=== PATIENT | male | born 1955 | race Caucasian/White ===

== ENCOUNTER 2023-11-04 05:31 | Observation (INO) ==
--- NOTE | 2023-11-02 12:21 | Anesthesiology Consultation ---
Date of Service November 02, 2023 Assessment & Plan (1) Encounter for pre-operative examination: Plan - awaiting surgeon ordered testing being completed at [facility] per PAT payroll secretary and will request most recent PCP office note-[facility] Dr. Oleksandr Chowdhury. - Case discussed with Dr. Brian who advised if testing is unremarkable patient can proceed with surgery without further evaluation from his standpoint. - Per biofuels production technician on 11/01/2023: No known infectious disease contacts, current infectious disease symptoms in past 10 days or COVID positive test result in the past 30 days. Chart Review Chart Review: Pending: Refer to Additional Notes / Consult section and Patient NOT seen in Pre Admission Testing History Surgery Operation Date: 11/04/23 09:20 Proposed Procedures p C4 Corpectomy - Scooby Silveira DO Height/Weight Height: 6 ft 1.5 in Weight: 74.843 kg Allergies Allergy/AdvReac Type Severity Reaction Status Date / Time No Known Allergies Allergy Verified 11/01/23 11:59 Medications Home Medications Medication Instructions Recorded Confirmed Last Taken multivitamin 1 tab PO QAM 11/01/23 11/01/23 Unknown naproxen sodium 220 mg tablet 220 mg PO Q12H PRN Pain 11/01/23 11/01/23 Unknown (Aleve) Past Medical History Medical History (Updated 11/02/23 @ 13:00 by Maci Cosby PA-C) Nausea and vomiting after administration of anesthetic agent "back in the day when they used ether" Osteoarthritis L4-L5 w/"narrowing" in my lower back, having pain currently, will be seeing pain specialist in the near future Hx of Lyme disease 05/2005,hospitalized for 11 days, initial bite was misdiagnosed as a spider bite until pt would go to bed he "felt like someone was putting a pillow over his face," and he would wake up and feel like he was drowning. taken to the ER at [facility] and found to have lyme's disease that affecting his heart History of temporary cardiac pacemaker treatment 05/2005, hospitalized for 11 days in the ICU at [facility] following misdiagnosed tick bite/lyme disease that was affecting his heart; f/u w/cardiology for 1 year at [facility]>no current issues. Past Family History Family History Father Diabetes Past Surgical History Surgical History History of colonoscopy Hx of appendectomy Hx of tonsillectomy Hx of detached retina repair partial tear rt eye repaired and a "hole" in the lt eye>unsuccessful repair done in [place]; ended up with a total of 5 surgeries in lt eye and 2 surgeries in the rt. eye when back in the [facility]. Social History Smoking Status: Never smoker Do You Dip or Chew Tobacco: No Hx Alcohol Use: No Hx Substance Use: No substance use type: does not use Testing Other Testing Brain MRI 09/09/23 No acute intracranial process Mild cerebral atrophy and periventricular white matter changes
[2023-11-04] MEDS ORDERED: ACETAMINOPHEN 500 MG TAB PO SCH (06:00)
[2023-11-04] MEDS ORDERED: LR 60ML/HR IV SCH (06:00)
[2023-11-04] MEDS ORDERED: ceFAZolin 2000MG 2,000 MG/15 ML SYR IV SCH (06:00)
[2023-11-04] MEDS ORDERED: CeleBREX 200 MG CAP PO SCH (06:00)
[2023-11-04] MEDS ORDERED: GABAPENTIN 300 MG CAP PO SCH (06:00)
[2023-11-04] MEDS ORDERED: LR 15ML/HR IV SCH (06:00)
[2023-11-04] MEDS ORDERED: MIDAZOLAM HCL 1 MG/ML 2ML VIAL ONE (07:15)
[2023-11-04] MEDS ORDERED: fentaNYL citrate PF 100 MCG/2 ML VIAL ONE ×2 (07:16→08:47)
[2023-11-04] MEDS ORDERED: PROPOFOL IV EMULSION 10 MG/ML 20 ML VIAL IV ONE (07:31)
[2023-11-04] MEDS ORDERED: LIDOCAINE 2% 2 ML VIAL/AMP(20MG/ML) INFIL ONE (07:31)
[2023-11-04] MEDS ORDERED: DEXAMETHASONE SOD INJ 4 MG/ML VIAL ONE (07:31)
[2023-11-04] MEDS ORDERED: ONDANSETRON INJ 2 MG/ML 2 ML VIAL ONE (07:31)
[2023-11-04] MEDS ORDERED: ROCURONIUM BROMIDE 10 MG/ML 5 ML VIAL IV ONE ×2 (07:31→08:29)
[2023-11-04] MEDS ORDERED: ePHEDrine sulfate 50 MG/ML AMP IV PRN (07:45)
[2023-11-04] MEDS ORDERED: FLUMAZENIL 0.1 MG/1 ML 10 ML VIAL IV PRN (07:45)
[2023-11-04] MEDS ORDERED: ATROPINE SULFATE 0.1 MG/ML 10ML SYR IV PRN (07:45)
[2023-11-04] MEDS ORDERED: LABETALOL HCL IV 5 MG/ML 20ML IV PRN (07:45)
[2023-11-04] MEDS ORDERED: HYDROmorphone INJ 1 MG/ML SYRINGE IV PRN ×2 (07:45→12:59)
[2023-11-04] MEDS ORDERED: ONDANSETRON INJ 2 MG/ML 2 ML VIAL IV PRN ×2 (07:45→12:59)
[2023-11-04] MEDS ORDERED: PROMETHAZINE HCL 12.5 MG in SODIUM CHLORIDE 0.9% 50 ML IV PRN ×2 (07:45→12:59)
[2023-11-04] MEDS ORDERED: NALOXONE HCL 0.4 MG/1 ML VIAL/CARP IV PRN ×2 (07:45→12:59)
--- NOTE | 2023-11-04 07:45 | History & Physical Bridge Note ---
Date of Service November 04, 2023 History & Physical Bridge Note I have examined the patient, reviewed the History & Physical and in the interval since the performance of the History & Physical I have noted the following changes of clinical significance: no changes noted
--- NOTE | 2023-11-04 07:46 | History & Physical Report ---
Date of Service November 04, 2023 Assessment & Plan (1) Myelopathy concurrent with and due to spinal stenosis of cervical region: Plan: C4 corpectomy History of Present Illness Chief Complaint: Neck and arm pain Primary Care Provider: Oleksandr Chowdhury This is a 68-year-old male presents with marked decline in status and evidence of cervical myelopathy. He is here for surgical intervention. Allergies Allergy/AdvReac Type Severity Reaction Status Date / Time No Known Allergies Allergy Verified 11/04/23 05:53 Home Medications Medication Instructions Recorded Confirmed Type multivitamin 1 tab PO QAM 11/01/23 11/04/23 History naproxen sodium 220 mg tablet 220 mg PO Q12H PRN Pain 11/01/23 11/04/23 History (Aleve) Past Med/Surg History Medical History (Updated 11/04/23 @ 07:46 by Scooby Silveira DO) Nausea and vomiting after administration of anesthetic agent "back in the day when they used ether" Osteoarthritis L4-L5 w/"narrowing" in my lower back, having pain currently, will be seeing pain specialist in the near future Hx of Lyme disease 05/2005,hospitalized for 11 days, initial bite was misdiagnosed as a spider bite until pt would go to bed he "felt like someone was putting a pillow over his face," and he would wake up and feel like he was drowning. taken to the ER at [facility] and found to have lyme's disease that affecting his heart History of temporary cardiac pacemaker treatment 05/2005, hospitalized for 11 days in the ICU at [facility] following misdiagnosed tick bite/lyme disease that was affecting his heart; f/u w/cardiology for 1 year at [facility]>no current issues. Surgical History History of colonoscopy Hx of appendectomy Hx of tonsillectomy Hx of detached retina repair partial tear rt eye repaired and a "hole" in the lt eye>unsuccessful repair done in [place]; ended up with a total of 5 surgeries in lt eye and 2 surgeries in the rt. eye when back in the [facility]. Family History Father Diabetes Social History Smoking Status: Never smoker Second Hand Exposure: Yes (as kid); Do You Dip or Chew Tobacco: No; Tobacco Cessation Education Requested by Patient: No Hx Alcohol Use: No Hx Substance Use: No Preferred Language: Irish Communication Ability: Effective Trucking Supervisor Required: No Beliefs That Will Affect Care: None Current Living Situation: Spouse Other Information That Helps Us Care for You: No Feels Safe at Home: Yes Safety Concerns: Feels Safe At This Time Assistive Devices: Glasses Assistive Devices Comment: perm bridge top front Physical Exam Physical Exam: Patient is alert normal Heart regular rhythm Lungs clear Results & Data Results & Data Vital Signs (Past 12 Hours) Vital Signs Temp Pulse Resp BP Pulse Ox O2 Del Method 11/04/23 05:54 36.8 C 65 20 134/74 99 Room Air
[2023-11-04] MEDS ORDERED: ceFAZolin 330 MG/ML 1 GM VIAL ONE (07:51)
[2023-11-04] MEDS ORDERED: ePHEDrine sulfate 50 MG/5 ML SYR ONE (08:35)
[2023-11-04] MEDS ORDERED: PHENYLEPHRINE HCL 10 MG/ML VIAL ONE (08:35)
[2023-11-04] MEDS ORDERED: diphenhydrAMINE 50 MG/ML VIAL ONE (08:37)
[2023-11-04] MEDS ORDERED: SUGAMMADEX SODIUM 200 MG/2 ML VIAL IV ONE ×2 (09:14→09:53)
[2023-11-04] MEDS ORDERED: PHENYLEPHRINE 100MCG/ML 10ML SYR IV ONE (09:36)
--- NOTE | 2023-11-04 09:47 | Operative Report ---
Post Operative Report Pre & Post Diagnosis Operation Date: 11/04/23 07:45 Pre-Op Diagnosis: Cervical spinal stenosis with myelopathy Post-Op Diagnosis: Same I identified the patient and participated in the time-out.: Yes Procedure Operation Date: 11/04/23 07:45 Actual Procedures #1 anterior cervical corpectomy with bilateral foraminotomies C4. #2 anterior cervical arthrodesis C3-C5. #3 placement of peek 25 mm cage between C4 and C5. #3 placement of locally harvested morselized autograft combined with I factor and interbody cage. #5 application of K2 M plate and screws from C3-C5. Surgeon Scooby Silveira, DO Production Gear Cutter Jyothi Mendez Estimated Blood Loss 10 Findings Consistent with Post-Op Diagnosis Specimens None Indications This is a 68-year-old male who presents above-mentioned diagnosis is here for surgical invention. Description of Procedure Patient was met with identified informed consent obtained. Patient was then taken to the operative suite underwent patient placed in supine position objectionable head Garay aquatics assistant department head. All bony promises well-padded eyes inspected to ensure no external pressure placed upon the. This point the anterior cervical spine was prepped and draped in a sterile fashion. The assistance of fluoroscopy identified the C4 vertebral body and a transverse incision was placed along the right aspect of the cervical spine overlying this region. Blunt dissection with assistance of bipolar electrocautery to form down to and exposing the anterior cervical spine from C3 3 to C5. Self-retaining retractors placed. Then performed complete discectomy of C3-4 out to the uncovertebral joints bilaterally followed by C4-C5. [place] distracting pins were placed in C3 and C5 distract across the C4 vertebral body. Complete corpectomy was then performed including removal of all posterior annular fibers longitudinal ligament bilateral foraminotomies were performed addressing severe stenosis. The endplates were then burred to subcortical bleeding bone and 25 mm peek cage filled with locally harvested morselized autograft and I factor tapped in position. Distracting apparatus was removed and a K2 M plate and screws applied with the assistance of fluoroscopy. The incision was then copiously irrigated explored to ensure no damage to surrounding structures or remaining bleeding. 10 round PABLO drain inserted. The incision was then closed with 2 Vicryl in a fashion of 4 Monocryl for fascial closure. Steri-Strip sterile dr essings placed. Patient awakened taken to PACU in stable condition. Please note spinal cord monitoring visualized at the procedure no changes noted. Lastly Jyothi Mendez was present at the entire surgeon while the patient positioning complex portions of the surgery and final skin closure. I attest to the content of the Intraoperative Record and any orders documented therein. Any exceptions are noted below.
--- NOTE | 2023-11-04 10:06 | Fluoroscopy Report ---
FL cervical 2-3V CLINICAL HISTORY: C4 CORPECTOMY COMPARISON STUDY: None FLUOROSCOPY TIME: 12 seconds FLUOROSCOPY IMAGES: 2 EXPOSURE DOSE: 1.05 mGy FINDINGS: Anterior plate and screw fusion hardware is noted at what appears to be the C3-C5 levels, e xact numbering is not definite based on positioning. Additionally, there is reported C4 corpectomy. T here are 2 surgical sponges in the anterior operative bed. Endotracheal tube is present. Note that th e images were submitted following completion of the surgery. A surgical drainage catheter is also pre sent. IMPRESSION: Fluoroscopic assistance as above. ACT 112: Negative or not required by law. Electronically signed by: Jakub Delacruz M.D. 11/04/2023 10:05 AM
[2023-11-04] MEDS ORDERED: FLOSEAL HEMOSTATIC MATRIX 10ML TOP ONE (10:29)
[2023-11-04] MEDS: fentaNYL citrate PF 100 MCG/2 ML VIAL IV PRN ×4 (10:42→10:57)
--- NOTE | 2023-11-04 11:27 | Anesthesiology Progress Note ---
Date of Service November 04, 2023 Anesthesia Post Procedure Vital Signs Vital Signs: Temp Pulse Resp BP Pulse Ox O2 Del Method O2 Flow Rate 11/04/23 11:15 36.8 C 72 16 135/71 98 Nasal Cannula 2 11/04/23 11:05 70 16 125/71 98 Nasal Cannula 2 11/04/23 10:55 61 12 119/64 100 Oxymask 4 11/04/23 10:45 62 12 126/68 100 Oxymask 4 11/04/23 10:35 71 18 136/73 100 Oxymask 4 11/04/23 10:25 70 16 132/72 100 Oxymask 4 11/04/23 10:15 76 18 124/69 100 Oxymask 6 11/04/23 10:07 36.0 C L 78 16 135/63 99 Oxymask 6 11/04/23 05:54 36.8 C 65 20 134/74 99 Room Air Pain Intensity Lower Back: Pain Intensity: 2 Neck: Pain Intensity: 2 Transfer of Care Handoff Completed per policy Notes Mental Status: alert / awake / arousable Patient Amnestic to Procedure: Yes Nausea / Vomiting: adequately controlled Pain: adequately controlled Airway Patency, RR, SpO2: stable & adequate BP & HR: stable & adequate Hydration State: stable & adequate Anesthetic Complications: no major complications apparent
[2023-11-04] MEDS ORDERED: dexAMETHasone 8 MG in SYRINGE 0 ML IV PRN (12:59)
[2023-11-04] MEDS ORDERED: RACEPINEPHRINE 2.25% NEBU SOLN 0.5 ML VIAL INH PRN (12:59)
[2023-11-04] MEDS ORDERED: hydrOXYzine HCl 25 MG TAB PO PRN (12:59)
[2023-11-04] MEDS ORDERED: MAGNESIUM HYDROXIDE SUSP 30 ML UDC PO PRN (12:59)
[2023-11-04] MEDS ORDERED: METOCLOPRAMIDE HCL INJ 5 MG/ML 2 ML VIAL IV PRN (12:59)
[2023-11-04] MEDS ORDERED: ALUMINUM/MAGNESIUM SUSP 30 ML UDC PO PRN (12:59)
[2023-11-04] MEDS ORDERED: ONDANSETRON 4 MG OD TAB PO PRN (12:59)
[2023-11-04] MEDS ORDERED: FAMOTIDINE 20 MG TAB PO PRN (12:59)
[2023-11-04] MEDS ORDERED: diphenhydrAMINE Capsule 25 MG CAP PO PRN (12:59)
[2023-11-04] MEDS ORDERED: LORazepam 0.5 MG in SYRINGE 0.25 ML IV PRN (12:59)
[2023-11-04] MEDS ORDERED: ACETAMINOPHEN 500 MG TAB PO PRN (12:59)
[2023-11-04] MEDS ORDERED: DO NOT ADMINISTER PNEUMOCOCCAL VACCINE PRN (12:59)
[2023-11-04] MEDS ORDERED: oxyCODONE HCL IR 5 MG TAB (IMMEDIATE RELEASE) PO PRN (12:59)
[2023-11-04] MEDS ORDERED: ACETAMINOPHEN 1,000 MG/100 ML VIAL IV PRN (12:59)
[2023-11-04] MEDS ORDERED: LORazepam 0.5 MG TAB PO PRN (12:59)
[2023-11-04] MEDS ORDERED: bisacodyL 10 MG SUPP PR PRN (12:59)
[2023-11-04] MEDS ORDERED: SOD PHOSPHATE/SOD BIPHOSPHATE ENEMA 132 ML BTL PR PRN (12:59)
[2023-11-04] MEDS ORDERED: traMADol HCL 50 MG TABLET PO PRN (12:59)
[2023-11-04] MEDS ORDERED: DO NOT ADMINISTER FLU VACCINE PRN (12:59)
[2023-11-04] MEDS ORDERED: HYDROmorphone INJ 0.5 MG/0.5 ML SYR IV PRN (12:59)
[2023-11-04] MEDS: LACTATED RINGER'S 1,000 ML IV SCH ×2 (14:48→21:35)
[2023-11-04] MEDS: dexAMETHasone 6 MG in SYRINGE 0 ML IV SCH ×2 (14:54→21:35)
[2023-11-04] MEDS: ceFAZolin 2000MG 2,000 MG/15 ML SYR IV SCH (17:52)
[2023-11-04] MEDS ORDERED: DOCUSATE SODIUM/SENNA 50/8.6MG TAB PO SCH (21:00)
[2023-11-04] MEDS ORDERED: COUGH DROP (SUGAR FREE) LOZ 24 LOZ/1 BOX BUCCAL PRN (22:48)
[2023-11-05] MEDS: ceFAZolin 2000MG 2,000 MG/15 ML SYR IV SCH (01:48)
[2023-11-05] MEDS: LACTATED RINGER'S 1,000 ML IV SCH (04:26)
[2023-11-05] MEDS: dexAMETHasone 6 MG in SYRINGE 0 ML IV SCH (06:04)
[2023-11-05] MEDS: POLYETHYLENE (MIRALAX) 17 GM PACK PO SCH ×2 (06:04→13:01)
--- NOTE | 2023-11-05 10:36 | Discharge Summary ---
Date of Service November 05, 2023 Admission HPI Per Admitting Provider This is a 68-year-old male presents with marked decline in status and evidence of cervical myelopathy. He is here for surgical intervention. Principal Diagnosis Cervical spinal stenosis with myelopathy Discharge Data Allergies Allergy/AdvReac Type Severity Reaction Status Date / Time No Known Allergies Allergy Verified 11/04/23 05:53 Procedures Performed Operation Date: 11/04/23 07:45 Actual Procedures p C4 Corpectomy - Scooby Silveira DO Ordered Studies 11/04/23 07:45 [place] cervical 2-3V Routine Hospital Course (1) Myelopathy concurrent with and due to spinal stenosis of cervical region: Patient underwent anterior cervical corpectomy and fusion tolerated this well was taken to orthopedic for postoperative. Postop day #1 he is open ambulating swallowing well. No hoarseness. Good strength testing. PABLO drain decreasing probably. Subsidy discharged home. Discharge orders instructions found in chart for further view. Total Time Total Time Spent Total Time Spent (In Minutes): 20 minutes Discharge Plan Discharge Items Patient Disposition: Home - Home Health Services Reason For Visit: Neck Pain, Cervical Spondylosis with Myelopathy Discharge Diagnosis: Cervical spinal stenosis with myelopathy Activity: As commented below Non-emergency contact: Primary Care Provider Call non-emergency contact if: you have any medication questions Follow-up/Referrals: Oleksandr Chowdhury MD [Primary Care Provider] - Diet: Regular Addtl Attending Provider Instructions: ACTIVITY RECOMMENDATIONS: SELF CARE INSTRUCTIONS AFTER CERVICAL FUSIONS 1. No smoking. Smoking drastically decreases the chance of a solid fusion. 2. No bending, lifting more than 5 pounds, or twisting (roll like a log when turning in bed). 3. You may shower 3 days after surgery. Thoroughly dry wound. Do not soak in the tub. 4. Cervical collar: Must be worn at all times including sleeping. You may remove the brace only to bath, eat and if you are sitting in a recliner. 5. Please walk as much as you can for exercise. Gradually increase the distance that you walk as your endurance increases. SPECIAL CARE INSTRUCTIONS: VERY IMPORTANT TO READ AND REVIEW A. Do not take any anti-inflammatory medications (i.e. Indocin, Advil, Aspirin, Naprosyn, Aleve, Motrin, etc.) as these may inhibit the chance of a solid fusion. Tylenol is okay to take. B. Your surgical incision has been closed with a cosmetic suture under the skin that will dissolve in about 6 weeks. In 14 days, you can use a pair of clean scissors and cut the suture that is left outside of the skin at the ends of your incision. C. Complications are uncommon, but please contact us if you have any signs or symptoms of: 1. wound infection (fever higher than 102.5 degrees F, redness, separation of wound, drainage, or increasing pain from the incision) 2. blood clots in legs (pain, swelling, redness and warmth in legs) 3. urinary tract infection (fever higher than 102.5 degrees, burning upon urination or increased frequency of urination) 4. nerve problems (inability to walk on your toes or heels, numbness, loss of bowel or bladder control) 5. any other symptoms that concern you. D. Please call the office at if you have any concerns or questions about your operation or recovery. MANAGING PAIN AFTER SPINAL SURGERY 1. Narcotic medication is intended for short-term use and will be provided for surgical pain. Surgical pain usually lasts for a period of 4-6 weeks. Narcotic medication includes Percocet, Vicodin, Darvocet, Tylenol #3 or Lortab. 2. Longer-term pain is more appropriately treated with non-narcotic medication such as Tylenol ES. 3. Muscle spasm is not appropriately treated with narcotics. Muscle relaxers such as Soma, Flexeril or Skelaxin can be used along with Tylenol ES. 4. Remember that we all live with some "aches and pains". This is not unusual or uncommon after an injury or as we get older. 5. We will provide appropriate medication within the normal guidelines of their prescribed use. We will also be very cautious and aware of potential abuse and extended duration of patients' medication needs. 6. Please allow 2-3 days to process refills. Prescriptions will not be mailed but must be picked up at the office. FOLLOW UP VISIT: Keep your scheduled follow-up appointment. Any questions, please call the office at . Pending Studies at Discharge: No Stand-Alone Forms: [email or web address], Smoking Cessation Medications and [facility] Order Prescriptions: New tramadol 50 mg tablet 50 mg PO Q6H PRN (Reason: pain, moderate) Qty: 30 0RF oxycodone 5 mg tablet 5 mg PO Q6H PRN (Reason: pain) Qty: 30 0RF Continued multivitamin Tablet 1 tab PO QAM naproxen sodium [Aleve] 220 mg Tablet 220 mg PO Q12H PRN (Reason: Pain) Discharge Orders: Discharge Order (Routine); Ordered 11/05/23 Ordered By: Scooby Silveira Admission Data Admit Date/Time: 11/04/23 09:50 Attending Provider: Scooby Silveira Admit Provider: Scooby Silveira Primary Care Provider: Oleksandr Chowdhury
== END 2023-11-05 13:02 | disposition home or self-care (01) ==
LOC: ASU 05:31 → INTOOBSV 09:50 → PACUINP 09:50 → 3E 14:31